=== PATIENT | male | born 1955 | race Caucasian/White ===

== ENCOUNTER 2019-03-17 15:33 | Emergency (ER) | payer MEDICARE ==
[2019-03-17 15:50] VITALS: BMI 34.4
[2019-03-17] MEDS ORDERED: LISINOPRIL40 MG PO (15:52)
[2019-03-17] MEDS ORDERED: FLOMAX0.4 MG PO (15:52)
[2019-03-17] MEDS ORDERED: LIPITOR20 MG PO (15:52)
[2019-03-17] MEDS ORDERED: GLUCOTROL 5 MG T5 MG PO (15:52)
[2019-03-17] MEDS ORDERED: HYDROCHLOROTH12.5 M1 PO (15:53)
[2019-03-17] MEDS ORDERED: METOPROLOL TART50 MG PO (15:53)
[2019-03-17 16:22] LABS: BASOPHILS 0.2 % (0-2); EOSINOPHILS 1.4 % (0-7); HEMATOCRIT 40.2 % (42.0-54.0); HEMOGLOBIN 14.5 g/dL (13.5-17.5); IMMATURE GRANULOCYTES 0.1 % (0-5); LYMPHOCYTES 32.8 % (15-50); MCH 29.7 pg (26.0-34.0); MCHC 36.1 g/dL (31.0-37.0); MCV 82.2 fL (80.0-100.0); MEAN PLATELET VOLUME 9.2 fL (7.4-10.4); MONOCYTES 7.9 % (2-11); NEUTROPHILS 57.6 % (40-80); PLATELET COUNT 232 10x3/uL (130-400); RBC 4.89 10x6/uL (4.20-6.10); RDW 12.6 % (11.5-14.5); WBC 8.7 10x3/uL (4.8-10.8)
[2019-03-17 16:32] LABS: ALBUMIN 3.8 g/dL (3.4-5.0); ALKALINE PHOSPHATASE 123 U/L (46-116); ALT (SGPT) 17 U/L (10-68); BILIRUBIN - TOTAL 0.43 mg/dL (0.2-1.3); CALC OSMOLALITY 286 mosm/kg (275-300); CALCIUM 9.4 mg/dL (8.5-10.1); CARBON DIOXIDE 24.4 mmol/L (21.0-32.0); CHLORIDE - SERUM 100 mmol/L (98-107); CREATININE - SERUM 1.1 mg/dL (0.6-1.3); GLUCOSE 201 mg/dL (74-106); POTASSIUM - SERUM 3.1 mmol/L (3.5-5.1); PROTEIN - SERUM 8.1 g/dL (6.4-8.2); SODIUM 139 mmol/L (136-145); UREA NITROGEN 20 mg/dL (7-18); eGFR NON AFRICAN AMERICAN 71 mL/min (90-120)
[2019-03-17 16:38] LABS: APTT 34.9 SECONDS (22.8-39.4); INR 1.01 (0.85-1.17); PROTIME 12.9 SECONDS (11.6-15.0)
[2019-03-17 17:20] LABS: CKMB 1.6 U/L (0.0-3.6); CREATINE KINASE 131 UL (21-232); MAGNESIUM - SERUM 1.6 mg/dL (1.8-2.4); THYROID STIMULATING HORMONE 0.99 uIU/mL (0.36-3.74); TROPONIN-I < 0.017 ng/mL (0.000-0.060)
[2019-03-17 19:07] VITALS: BP 171/93
== END 2019-03-17 19:09 | disposition other institution (70) ==
LOC: D.ER 15:33
PROVIDERS: Emergency Medicine
DX: I63.9 Cerebral infarction, unspecified (principal); G81.91 Hemiplegia, unspecified affecting right dominant side; R29.810 Facial weakness; H53.2 Diplopia; I10 Essential (primary) hypertension; E87.6 Hypokalemia